=== PATIENT | male | born 1985 | race Caucasian/White ===

== ENCOUNTER 2022-03-09 09:34 | Emergency (ER) | payer BC ==
[~2022-03-09] VITALS: Ht 182.9 cm; Wt 54.1 kg
[2022-03-09 09:58] VITALS: TEMP 97.7
[2022-03-09 11:47] LABS: COLLECTION METHOD CLEAN CATCH
[2022-03-09 11:56] LABS: PH 7 (5-8); SQUAMOUS EPITHELIAL None Seen /hpf (0-10); URINE APPEARANCE Clear (CLEAR/HAZY); URINE BACTERIA None Seen /hpf (NONE SEEN); URINE BLOOD Negative (NEGATIVE); URINE COLOR Straw (YELLOW); URINE GLUCOSE Negative (NEGATIVE); URINE KETONE Negative (NEGATIVE); URINE NITRATE Negative (NEGATIVE); URINE PROTEIN(semi-quant) Negative (NEGATIVE); URINE RBC 0-2 /hpf (0-2); URINE UROBILINOGEN Negative (NEGATIVE)
[2022-03-09 12:07] LABS: INR 1.1 (0.8-3.0); PROTHROMBIN TIME 12.4 SECONDS (9.7-12.8)
[2022-03-09 12:10] LABS: ALANINE AMINOTRANSFERASE 15 U/L (0-55); ALBUMIN 4.7 gm/dL (3.5-5.0); ALKALINE PHOSPHATASE 47 U/L (40-150); ANION GAP 10 mmol/L (7-16); AST,SGOT 16 U/L (5-34); BLOOD UREA NITROGEN 18 mg/dL (9-21); CARBON DIOXIDE 27 mmol/L (22-29); CHLORIDE 105 mmol/L (98-107); CREATININE, serum 1.28 mg/dL (0.72-1.25); GLUCOSE 82 mg/dL (70-99); LIPASE 15 U/L (8-78); PARTIAL THROMBOPLASTIN TIME 36.7 SECONDS (26.0-37.0); POTASSIUM 4.1 mmol/L (3.5-4.5); SODIUM 142 mmol/L (136-145); TOTAL PROTEIN 8.1 gm/dL (6.2-8.1)
[2022-03-09 12:11] LABS: BASO # 0.1 K/mm3 (0.0-0.2); BASO % 0.8 % (0.0-2.0); D-DIMER < 200.00 ng/mLDDu (200-230); EOS % 0.4 % (0.0-4.0); GRAN # 5.5 K/mm3 (1.4-6.5); GRAN % 71.7 % (42.2-75.2); HEMATOCRIT 46.1 % (42.0-52.0); HEMOGLOBIN 16.1 g/dl (13.5-18.0); LYMPH # 1.6 K/mm3 (1.2-3.4); LYMPH % 20.3 % (20.0-51.0); MEAN CELL VOLUME 87 fl (80.0-100.0); MEAN CORPUSCULAR HEMOGLOBIN 31 pg (27-31); MEAN CORPUSCULAR HGB CONC 35 g/dl (33.0-37.0); MONO # 0.5 K/mm3 (0.1-0.6); MONO % 6.7 % (1.7-9.3); PLATELET COUNT 233 K/mm3 (130-400); RED BLOOD COUNT 5.28 M/mm3 (4.20-5.60); REDCELL DISTRIBUTION WIDTH-CV 11.9 % (11.5-14.5)
[2022-03-09 12:16] LABS: TROPONIN-I < 0.010 ng/mL (0.00-0.033)
[2022-03-09 13:22] VITALS: BP 124/86; PULSE 66
== END 2022-03-09 13:25 | disposition home or self-care (01) ==
LOC: COL.ER 09:34 → EDSEX 09:34 → COL.ER 13:25
PROVIDERS: Nurse Practitioner Family
DX: R07.89 Other chest pain (principal); E86.0 Dehydration; M54.9 Dorsalgia, unspecified; Z20.822 Contact with and (suspected) exposure to COVID-19
CPT/HCPCS: J1885; J7030